=== PATIENT | female | born 1970 | race African-American/Black ===

== ENCOUNTER 2022-10-15 15:36 | Emergency (ER) | payer OTHER ==
[~2022-10-15] VITALS: Ht 162.6 cm; Wt 75.7 kg
--- NOTE | 2022-10-15 16:25 | NUR ---
PT IS IN ROOM #1A. DR JONES EVALUATED THE PT.
[2022-10-15] MEDS ORDERED: IBUP-1955 PO (16:34)
--- NOTE | 2022-10-15 17:22 | NUR ---
PT WAS D/C'd TO HOME. D/C INSTRUCTIONS GIVEN TO THE PT BY DR JONES.
[2022-10-15 17:24] VITALS: BP 136/81
== END 2022-10-15 17:32 | disposition home or self-care (01) ==
LOC: ER 15:49
DX: S93.401A Sprain of unspecified ligament of right ankle, initial encounter (principal); W01.0XXA Fall on same level from slipping, tripping and stumbling without subsequent striking against object, initial encounter; Y92.9 Unspecified place or not applicable
CPT/HCPCS: 73590; 73610; A4663